=== PATIENT | male | born 2000 | race Hispanic/Latino ===

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

== ENCOUNTER 2023-12-11 05:46 | Emergency (ER) | payer SELFPAY ==
[2023-12-11] MEDS ORDERED: IBUPROFEN 400 MG TAB ONE (06:34)
[2023-12-11] MEDS ORDERED: DIAZEPAM 5 MG TABLET ONE (06:35)
--- NOTE | 2023-12-11 07:35 | RAD REPORT ---
EXAM DESCRIPTION: CT - C Spine Wo Con - 12/11/2023 6:59 am CLINICAL HISTORY: neck pain Neck pain, neck injury, radiculopathy COMPARISON: Chest Abd Pelvis Wo Con dated 12/11/2023 FINDINGS: The cervical vertebral body heights and disc spaces are maintained. No evidence of acute cervical spine fracture or subluxation. Prevertebral soft tissues are normal in thickness. IMPRESSION: Negative for acute cervical spine abnormality. All CT scans are performed using dose optimization technique as appropriate and may include automated exposure control or mA/KV adjustment according to patient size.
--- NOTE | 2023-12-11 07:38 | RAD REPORT ---
EXAM DESCRIPTION: CT - Chest Abd Pelvis Wo Con - 12/11/2023 6:59 am CLINICAL HISTORY: Chest and abdomen pain. CHEST PAIN COMPARISON: No comparisons TECHNIQUE: A limited noncontrast study was performed. All CT scans are performed using dose optimization technique as appropriate and may include automated exposure control or mA/KV adjustment according to patient size. FINDINGS: The lungs are clear.No pleural or pericardial effusion.No intrathoracic adenopathy. The liver, spleen, pancreas, adrenal glands and kidneys are within normal limits. No bowel obstruction, free air, free fluid or abscess. The appendix is not identified as a discrete s tructure, however, no secondary findings of appendicitis are identified. No pathologic lymphadenopa thy in the abdomen or pelvis. No worrisome osseous finding. IMPRESSION: No acute abnormality is detected.
--- NOTE | 2023-12-11 08:05 | EDPHYS ---
Physician Documentation [facility] Name: Daljit Faustin Age: 23 yrs Sex: Male : 2000 Arrival Date: 12/11/2023 Time: 05:46 Bed 4 Private MD: ED Physician Simone Vences HPI: 12/10 05:55 This 23 yrs old Male presents to ER via Unassigned with complaints of Chest sp4 Wall Pain, Back Pain. 07:18 23-year-old male presents with 1 year of left upper chest pain associated with left sp4 shoulder pain. Historical: - Allergies: 06:07 No Known Allergies; ha1 - PMHx: 06:07 ADD/ADHD; Asthma; ha1 - Immunization history:: Adult Immunizations up to date. - Infectious Disease History:: Denies. - Social history:: Smoking status: Reported history of juuling and/or vaping. - Family history:: not pertinent. ROS: 07:18 Constitutional: Negative for fever, chills, and weight loss, but of left upper chest sp4 pain and left shoulder pain 07:18 All other systems are negative, Exam: 07:18 Constitutional: This is a well developed, well nourished patient who is awake, alert, sp4 and in no acute distress. Head/Face: Normocephalic, atraumatic. Eyes: Pupils equal round and reactive to light, extra-ocular motions intact. Lids and lashes normal. Conjunctiva and sclera are not injected. Cornea within normal limits. Periorbital areas with no swelling, redness, or edema. ENT: Nares patent. No nasal discharge, no septal abnormalities noted. Tympanic membranes are normal and external auditory canals are clear. Oropharynx with no redness, swelling, or masses, exudates, or evidence of obstruction, uvula midline. Mucous membranes moist. Neck: Trachea midline, no thyromegaly or masses palpated, and no cervical lymphadenopathy. Supple, full range of motion without nuchal rigidity, or vertebral point tenderness. Chest/axilla: Normal chest wall appearance and motion. Nontender with no deformity. No lesions are appreciated. Cardiovascular: Regular rate and rhythm with a normal S1 and S2. No gallops, murmurs, or rubs. Normal PMI, no JVD. No pulse deficits. Respiratory: Lungs have equal breath sounds bilaterally, clear to auscultation and percussion. No rales, rhonchi or wheezes noted. No increased work of breathing, no retractions or nasal flaring. Abdomen/GI: Soft, with normal bowel sounds. No distension or tympany. No guarding or rebound. No evidence of tenderness throughout. Back: No spinal tenderness. No costovertebral tenderness. Skin: Warm, dry with normal turgor. Normal color with no rashes, no lesions, and no evidence of cellulitis. MS/ Extremity: Pulses equal, no cyanosis. Neurovascular intact. Full, normal range of motion. Neuro: Awake and alert, GCS 15, oriented to person, place, time, and situation. Cranial nerves II-XII grossly intact. Motor strength 5/5 in all extremities. Sensory grossly intact. Psych: Awake, alert, with orientation to person, place and time. Behavior, mood, and affect are within normal limits 07:18 ECG was reviewed by [place] [address] is normal sinus rhythm at the rate of 90 bpm, rightward axis Vital Signs: 06:00 BP 126 / 82; Pulse 96; Resp 17 S; Temp 98.2(O); Pulse Ox 100% on R/A; Weight 49.9 kg; ha1 Height 5 ft. 3 in. ; 07:40 BP 117 / 70; Pulse 72; Resp 16; Pulse Ox 100% ; bp 06:00 Body Mass Index 19.49 (49.90 kg, 160.02 cm) ha1 MDM: 05:55 Patient medically screened. sp4 07:58 ED course: EXAM DESCRIPTION: CT - C Spine Wo Con - 12/11/2023 6:59 am CLINICAL HISTORY: sp4 neck pain Neck pain, neck injury, radiculopathy COMPARISON: Chest Abd Pelvis Wo Con dated 12/11/2023 FINDINGS: The cervical vertebral body heights and disc spaces are maintained. No evidence of acute cervical spine fracture or subluxation. Prevertebral soft tissues are normal in thickness. IMPRESSION: Negative for acute cervical spine abnormality. All CT scans are performed using dose optimization technique as appropriate and may include automated exposure control or mA/KV adjustment according to patient size. . ED course: EXAM DESCRIPTION: CT - Chest Abd Pelvis Wo Con - 12/11/2023 6:59 am CLINICAL HISTORY: Chest and abdomen pain. CHEST PAIN COMPARISON: No comparisons TECHNIQUE: A limited noncontrast study was performed. All CT scans are performed using dose optimization technique as appropriate and may include automated exposure control or mA/KV adjustment according to patient size. FINDINGS: The lungs are clear.No pleural or pericardial effusion.No intrathoracic adenopathy. The liver, spleen, pancreas, adrenal glands and kidneys are within normal limits. No bowel obstruction, free air, free fluid or abscess. The appendix is not identified as a discrete structure, however, no secondary findings of appendicitis are identified. No pathologic lymphadenopathy in the abdomen or pelvis. No worrisome osseous finding. IMPRESSION: No acute abnormality is detected. . 12/10 06:23 Order name: CT Chest Abdomen Pelvis W/O Contrast sp4 12/10 06:23 Order name: CT C Spine sp4 12/10 05:55 Order name: EKG - Nurse/Tech; Complete Time: 05:59 sp4 EC:18 Rate is 90 beats/min. Rhythm is regular, Normal Sinus Rhythm. Right axis deviation sp4 noted. HI interval is normal. QRS interval is normal. QT interval is normal. No Q waves. T waves are Normal. No ST changes noted. Clinical impression: No evidence of ischemia. Interpreted by me. Reviewed by me. Administered Medications: 06:38 Drug: Ibuprofen PO 800 mg PO once Route: PO; cp4 08:10 Follow up: Response: No adverse reaction iw 06:38 Drug: Diazepam PO 10 mg PO once Route: PO; cp4 08:11 Follow up: Response: No adverse reaction iw Disposition Summary: 12/11/23 08:04 Discharge Ordered Notes: Location: Home sp4 Problem: new sp4 Symptoms: have improved sp4 Condition: Stable sp4 Diagnosis - Anxiety disorder, unspecified sp4 - Left shoulder pain, left rotator cuff weakness, noncardiac chest pain sp4 Followup: sp4 - With: Michi Hodges DO - When: 7 - 10 days - Reason: Recheck today's complaints Discharge Instructions: - Discharge Summary Sheet sp4 - Rotator Cuff Tendinitis sp4 Forms: - Patient Portal Instructions sp4 Prescriptions: - Ibuprofen 600 mg Oral Tablet - take 1 tablet ORAL route every 6 hours As needed take with food; 30 tablet; sp4 Refills: 0, Product Selection Permitted Signatures: Dispatcher [employer] Estephanie Andrade RN RN ha1 Simone Vences MD MD sp4 Lary Sims cp4 Sharon Duran RN iw
--- NOTE | 2023-12-11 08:05 | ER ---
Nurse's Notes [facility] Name: Daljit Faustin Age: 23 yrs Sex: Male : 2000 Arrival Date: 12/11/2023 Time: 05:46 Bed 4 Private MD: Diagnosis: Anxiety disorder, unspecified;Left shoulder pain, left rotator cuff weakness, noncardiac chest pain Presentation: 12/10 06:00 Chief complaint: Patient states: I have been feeling pain on the left side of chest ha1 that radiate to the left side of my back. Pain gets worse with movements. 06:00 Coronavirus screen: Vaccine status: Patient reports being unvaccinated. Ebola Screen: ha1 No symptoms or risks identified at this time. Initial Sepsis Screen: Does the patient meet any 2 criteria? No. Patient's initial sepsis screen is negative. Does the patient have a suspected source of infection? No. Patient's initial sepsis screen is negative. Risk Assessment: Do you want to hurt yourself or someone else? Patient reports no desire to harm self or others. Onset of symptoms was November 28, 2023. 06:00 Method Of Arrival: Ambulatory ha1 06:00 Acuity: EDILSON 3 ha1 Triage Assessment: 06:00 General: Appears uncomfortable, Behavior is calm, cooperative. Pain: Complains of pain ha1 in anterior aspect of left upper chest Pain radiates to back Pain currently is 8 out of 10 on a pain scale. Quality of pain is described as crampy, pressure. Neuro: Level of Consciousness is awake, alert, obeys commands, Oriented to person, place, time, situation. Cardiovascular: Reports chest pain, Heart tones S1 S2 present Capillary refill < 3 seconds Thorax. Respiratory: Airway is patent Respiratory effort is even, unlabored, Respiratory pattern is regular, symmetrical. GI: No signs and/or symptoms were reported involving the gastrointestinal system. : No signs and/or symptoms were reported regarding the genitourinary system. Derm: Skin is moist, Skin is normal. Musculoskeletal: Circulation, motion, and sensation intact. Range of motion: intact in all extremities. Historical: - Allergies: 06:07 No Known Allergies; ha1 - PMHx: 06:07 ADD/ADHD; Asthma; ha1 - Immunization history:: Adult Immunizations up to date. - Infectious Disease History:: Denies. - Social history:: Smoking status: Reported history of juuling and/or vaping. - Family history:: not pertinent. Screenin:11 [facility] ED Fall Risk Assessment (Adult) History of falling in the last 3 months, ha1 including since admission No falls in past 3 months (0 pts) Confusion or Disorientation No (0 pts) Intoxicated or Sedated No (0 pts) Impaired Gait No (0 pts) Mobility Assist Device Used No (0 pt) Altered Elimination No (0 pt) Score/Fall Risk Level 0 - 2 = Low Risk Oriented to surroundings, Maintained a safe environment, Educated pt \T\ family on fall prevention, incl call for assistance when getting out of bed, Hourly rounding (assess needs \T\ fall precautionary measures) done. Abuse screen: Denies threats or abuse. Denies injuries from another. Nutritional screening: No deficits noted. Tuberculosis screening: No symptoms or risk factors identified. Assessment: 06:00 Reassessment: see triage assessment. ha1 07:00 Reassessment: Patient and/or family updated on plan of care and expected duration. Pain ha1 level reassessed. Patient is alert, oriented x 3, equal unlabored respirations, skin warm/dry/pink. Vital Signs: 06:00 BP 126 / 82; Pulse 96; Resp 17 S; Temp 98.2(O); Pulse Ox 100% on R/A; Weight 49.9 kg; ha1 Height 5 ft. 3 in. ; 07:40 BP 117 / 70; Pulse 72; Resp 16; Pulse Ox 100% ; bp 06:00 Body Mass Index 19.49 (49.90 kg, 160.02 cm) ha1 ED Course: 05:47 Patient arrived in ED. jj6 05:55 Simone Vences MD is Attending Physician. sp4 05:59 Patient has correct armband on for positive identification. Placed in gown. Bed in low ha1 position. Call light in reach. Side rails up X 1. 05:59 Client placed on continuous cardiac and pulse oximetry monitoring. NIBP monitoring ha1 applied. receiving lead on. 06:00 Arm band placed on right wrist. ha1 06:07 Triage completed. ha1 06:12 Patient maintains SpO2 saturation greater than 95% on room air. ha1 06:59 CT Chest Abdomen Pelvis W/O Contrast In Process Unspecified. EDMS 07:00 CT C Spine In Process Unspecified. EDMS 07:36 Nabil Linn, RN is Primary Nurse. bp 08:04 Michi Hodges DO is Referral Physician. sp4 08:09 Provided Education on: d/c instructions. iw 08:10 No provider procedures requiring assistance completed. Patient did not have IV access iw during this emergency room visit. Administered Medications: 06:38 Drug: Ibuprofen PO 800 mg PO once Route: PO; cp4 08:10 Follow up: Response: No adverse reaction iw 06:38 Drug: Diazepam PO 10 mg PO once Route: PO; cp4 08:11 Follow up: Response: No adverse reaction iw Medication: 06:12 VIS not applicable for this client. ha1 Outcome: 08:04 Discharge ordered by . sp4 08:10 Discharged to home ambulatory, iw 08:10 Condition: good 08:10 Discharge instructions given to patient, Instructed on discharge instructions, follow up and referral plans. Demonstrated understanding of instructions, follow-up care, medications, Prescriptions given X 1, 08:10 Patient left the ED. iw Signatures: Dispatcher [employer] Sharon Dwyer, RN RN iw Nabil Linn, RN RN bp Keyona Renee jj6 Estephanie Nguyen, MATTHEW RN ha1 Simone Vences MD MD sp4 Lary Sims cp4
[2023-12-11 10:02] VITALS: TEMP 98.2; O2SAT 100
[2023-12-11 10:03] VITALS: BP 117/70
--- NOTE | 2023-12-11 13:29 | EKG ---
Test Date: 2023-12-11 Test Time: 06:05:59 Nursing Service Administrator: HAROON MEASUREMENT RESULTS: Intervals: Rate: 90 OK: 138 QRSD: 88 QT: 330 QTc: 403 [place]: P: 68 OK: 138 QRS: 94 T: 55 INTERPRETIVE STATEMENTS: Normal sinus rhythm Rightward axis Borderline ECG No previous ECG available for comparison Electronically Signed On 12-11-23 13:28:39 CDT by Harpreet Magallon
== END 2023-12-11 08:10 | disposition home or self-care (01) ==
LOC: ER 05:46
DX: F41.9 Anxiety disorder, unspecified (principal); M25.512 Pain in left shoulder; M62.81 Muscle weakness (generalized)
CPT/HCPCS: 71250; 72125; 74176; 93005; 99284

== ENCOUNTER 2024-04-20 22:21 | Emergency (ER) | payer SELFPAY ==
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
[2024-04-21 02:32] VITALS: BP 121/76; TEMP 98; O2SAT 100
--- NOTE | 2024-04-22 15:48 | EKG ---
Test Date: 2024-04-20 Test Time: 23:26:41 [employer] Miller: JASPER MEASUREMENT RESULTS: Intervals: Rate: 67 NV: 140 QRSD: 94 QT: 366 QTc: 386 [place]: P: 62 NV: 140 QRS: 97 T: 54 INTERPRETIVE STATEMENTS: Normal sinus rhythm Normal ECG Compared to ECG 12/11/2023 06:05:59 Right-axis deviation no longer present Electronically Signed On 04-22-24 15:46:30 BELLING MACHINE OPERATOR by Idris Cao
== END 2024-04-21 02:24 | disposition home or self-care (01) ==
LOC: ER 22:21
DX: S20.214A Contusion of middle front wall of thorax, initial encounter (principal); F17.290 Nicotine dependence, other tobacco product, uncomplicated; V43.52XA Car driver injured in collision with other type car in traffic accident, initial encounter; W22.11XA Striking against or struck by driver side automobile airbag, initial encounter; Y93.89 Activity, other specified; Y92.410 Unspecified street and highway as the place of occurrence of the external cause
CPT/HCPCS: 71250; 74176; 93005; 99284

== ENCOUNTER 2024-04-23 16:26 | Emergency (ER) | payer SELFPAY ==
[2024-04-23 19:32] LABS: Specific Gravity 1.011 (1.005-1.030); Urine Bilirubin NEGATIVE (Negative); Urine Blood Negative (Negative); Urine Clarity Clear (Clear); Urine Color Colorless (Yellow); Urine Glucose NEGATIVE (Negative); Urine Ketones NEGATIVE (Negative); Urine Microscopic Reflex YN NO UMIC; Urine Nitrite NEGATIVE (Negative); Urine Protein NEGATIVE (Negative); Urine Urobilinogen Normal (Normal)
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
--- NOTE | 2024-04-23 20:56 | ER ---
Nurse's Notes [facility] Name: Daljit Faustin Age: 23 yrs Sex: Male : 2000 Arrival Date: 04/23/2024 Time: 16:26 Bed 14 Private MD: Diagnosis: Abdominal pain, unspecified Presentation: 04/23 16:38 Chief complaint: Patient states: R sided abdominal pain/R flank pain for 2 weeks. Feels ll1 a lump to RLQ area. Has to force the stream to urinate well today. + heat waves but known fever. Coronavirus screen: Client denies travel out of the [place] in the last 14 days. At this time, the client does not indicate any symptoms associated with coronavirus-19. Ebola Screen: Patient denies travel to an Ebola-affected area in the 21 days before illness onset. Initial Sepsis Screen: Does the patient meet any 2 criteria? No. Patient's initial sepsis screen is negative. Does the patient have a suspected source of infection? No. Patient's initial sepsis screen is negative. Risk Assessment: Do you want to hurt yourself or someone else? Patient reports no desire to harm self or others. Onset of symptoms was April 10, 2024. 16:38 Method Of Arrival: Ambulatory 1 16:38 Acuity: EDILSON 3 ll1 Triage Assessment: 16:42 General: Appears uncomfortable, Behavior is calm, cooperative, appropriate for age. ll1 General: Reports fatigue for. Pain: Complains of pain in RLQ Quality of pain is described as aching. GI: Reports lower abdominal pain, nausea. Historical: - Allergies: 16:40 No Known Allergies; ll1 - PMHx: 16:40 ADD/ADHD; Asthma; ll1 - PSHx: 16:40 None; ll1 - Immunization history:: Adult Immunizations up to date. - Infectious Disease History:: Denies. - Social history:: Smoking status: Patient reports the use of cigarette tobacco products, denies chronic smoking, but will smoke occasionally, Reported history of juuling and/or vaping. Screenin:28 [facility] ED Fall Risk Assessment (Adult) History of falling in the last 3 months, dd2 including since admission No falls in past 3 months (0 pts) Confusion or Disorientation No (0 pts) Intoxicated or Sedated No (0 pts) Impaired Gait No (0 pts) Mobility Assist Device Used No (0 pt) Altered Elimination No (0 pt) Score/Fall Risk Level 0 - 2 = Low Risk Oriented to surroundings, Maintained a safe environment, Educated pt \T\ family on fall prevention, incl call for assistance when getting out of bed, Assessed \T\ reinforced patient's understanding of fall precautions, Hourly rounding (assess needs \T\ fall precautionary measures) done. Abuse screen: Denies threats or abuse. Nutritional screening: No deficits noted. Tuberculosis screening: No symptoms or risk factors identified. Assessment: 19:28 General: Appears in no apparent distress. Behavior is calm, cooperative, appropriate dd2 for age. Pain: Complains of pain in anterior aspect of right lateral abdomen, posterior aspect of right lateral abdomen and right lower quadrant Pain radiates to right low back Pain currently is 4 out of 10 on a pain scale. Neuro: Level of Consciousness is awake, alert, obeys commands, Oriented to person, place, time, situation, Appropriate for age. Cardiovascular: No deficits noted. Patient's skin is warm and dry. Respiratory: No deficits noted. Airway is patent Respiratory effort is even, unlabored, Respiratory pattern is regular, symmetrical. GI: Abdomen is flat, non-distended, Bowel sounds present X 4 quads. Abdomen is tender to palpation in anterior aspect of right lateral abdomen and right lower quadrant Reports lower abdominal pain. : CVA tenderness noted on right Reports urgency, DIFFICULTY URINATING. EENT: No deficits noted. No signs and/or symptoms were reported regarding the EENT system. Derm: No deficits noted. No signs and/or symptoms reported regarding the dermatologic system. Musculoskeletal: Circulation, motion, and sensation intact. Range of motion: intact in all extremities. Vital Signs: 16:38 BP 131 / 64; Pulse 80; Resp 16; Temp 97.9; Pulse Ox 98% ; Weight 54.43 kg; Height 5 ft. ll1 5 in. ; Pain 7/10; 19:28 BP 117 / 71; Pulse 63; Resp 16; Temp 98.1; Pulse Ox 100% ; dd2 20:30 BP 115 / 73; Pulse 68; Resp 16; Pulse Ox 100% ; dd2 21:16 BP 119 / 72; Pulse 69; Resp 16; Temp 98.4; Pulse Ox 100% ; dd2 16:38 Body Mass Index 19.97 (54.43 kg, 165.1 cm) ll1 16:38 Pain Scale: Adult ll1 [place] Coma Score: 19:28 Eye Response: spontaneous(4). Motor Response: obeys commands(6). Verbal Response: dd2 oriented(5). Total: 15. ED Course: 16:28 Patient arrived in ED. im 16:40 Triage completed. ll1 16:43 Arm band placed on. ll1 18:36 Joanna Anderson FNP-C is [facility]. kb 18:36 Jesse Villeda MD is Attending Physician. kb 19:28 MUMTAZ STRANGE RN is Primary Nurse. dd2 19:28 Patient has correct armband on for positive identification. Bed in low position. Call dd2 light in reach. Side rails up X 1. Client placed on continuous cardiac and pulse oximetry monitoring. NIBP monitoring applied. Door closed. Noise minimized. Warm blanket given. Pillow given. Verbal reassurance given. 19:28 No provider procedures requiring assistance completed. Urine collected: clean catch dd2 specimen, cloudy. Patient maintains SpO2 saturation greater than 95% on room air. 19:54 CT Stone Protocol In Process Unspecified. EDMS 20:15 Inserted saline lock: 20 gauge in right antecubital area, using aseptic technique. dd2 Flushed with 10 mL NS. 21:16 IV discontinued, intact, bleeding controlled, No redness/swelling at site. Pressure dd2 dressing applied. 21:17 Provided Education on: D/C INSTRUCTIONS. dd2 Administered Medications: 21:14 Drug: Ketorolac IVP 15 mg IVP once Route: IVP; Site: right antecubital; dd2 21:17 Follow up: Response: Medication administered at discharge. dd2 Medication: 19:28 VIS not applicable for this client. dd2 Outcome: 20:55 Discharge ordered by . kb 21:16 Discharged to home ambulatory, dd2 21:16 Condition: stable 21:16 Discharge instructions given to patient, Instructed on discharge instructions, follow up and referral plans. medication usage, Demonstrated understanding of instructions, follow-up care, medications, 21:18 Patient left the ED. dd2 Signatures: Dispatcher [employer] EDMS Joanna Anderson FNP-C FNP-Ckb Lewis, Lynsay, RN RN ll1 [place] DIANA, RN RN dd2 Corrections: (The following items were deleted from the chart) 21:16 19:28 BP 117 / 7; Pulse 63bpm; Resp 16bpm; Pulse Ox 100%; Temp 98.1F; dd2 dd2
--- NOTE | 2024-04-23 20:56 | EDPHYS ---
Physician Documentation [facility] Name: Daljit Faustin Age: 23 yrs Sex: Male : 2000 Arrival Date: 04/23/2024 Time: 16:26 Bed 14 Private MD: ED Physician Jesse Villeda HPI: 04/23 23:54 This 23 yrs old Male presents to ER via Ambulatory with complaints of kb Abdominal Pain, Flank Pain. 23:54 Pt is a 23 year old male who presents for RLQ pain that started 2 weeks ago. States it kb had been intermittent until yesterday when it became constant. Reports nausea and difficulty urinating that started yesterday as well. Denies fever, vomiting, diarrhea. . Historical: - Allergies: 16:40 No Known Allergies; ll1 - PMHx: 16:40 ADD/ADHD; Asthma; ll1 - PSHx: 16:40 None; ll1 - Immunization history:: Adult Immunizations up to date. - Infectious Disease History:: Denies. - Social history:: Smoking status: Patient reports the use of cigarette tobacco products, denies chronic smoking, but will smoke occasionally, Reported history of juuling and/or vaping. ROS: 23:52 Constitutional: As per HPI kb Exam: 23:52 Constitutional: This is a well developed, well nourished patient who is awake, alert, kb and in no acute distress. Head/Face: Normocephalic, atraumatic. ENT: Moist Mucous membranes Cardiovascular: Regular rate Respiratory: Respirations even and unlabored. No increased work of breathing. Talking in full sentences Back: No spinal tenderness. No costovertebral tenderness. Full range of motion. Skin: Warm, dry with normal turgor. Normal color. MS/ Extremity: Pulses equal, no cyanosis. Neurovascular intact. Full, normal range of motion. Neuro: Awake and alert, GCS 15, oriented to person, place, time, and situation. 23:52 Abdomen/GI: Inspection: abdomen appears normal, Bowel sounds: normal, Palpation: soft, in all quadrants, mild abdominal tenderness, in the right lower quadrant, Vital Signs: 16:38 BP 131 / 64; Pulse 80; Resp 16; Temp 97.9; Pulse Ox 98% ; Weight 54.43 kg; Height 5 ft. ll1 5 in. ; Pain 7/10; 19:28 BP 117 / 71; Pulse 63; Resp 16; Temp 98.1; Pulse Ox 100% ; dd2 20:30 BP 115 / 73; Pulse 68; Resp 16; Pulse Ox 100% ; dd2 21:16 BP 119 / 72; Pulse 69; Resp 16; Temp 98.4; Pulse Ox 100% ; dd2 16:38 Body Mass Index 19.97 (54.43 kg, 165.1 cm) ll1 16:38 Pain Scale: Adult ll1 [place] Coma Score: 19:28 Eye Response: spontaneous(4). Motor Response: obeys commands(6). Verbal Response: dd2 oriented(5). Total: 15. MDM: 18:36 Medical Screening Exam initiated kb 23:53 Differential diagnosis: appendicitis, non-specific abd pain, Ureterolithiasis, urinary kb tract infection. Data reviewed: vital signs, nurses notes. Test considered but Not performed: Labs: cbc, cmp considered but pt is nontoxic in appearance, afebrile, tolerating po intake. Counseling: I had a detailed discussion with the patient and/or guardian regarding the historical points, exam findings, and any diagnostic results supporting the discharge/admit diagnosis, lab results, radiology results, the need for outpatient follow up, a family practitioner, to return to the emergency department if symptoms worsen or persist or if there are any questions or concerns that arise at home. 04/23 18:36 Order name: Urinalysis w/ reflexes; Complete Time: 19:57 kb 04/23 18:36 Order name: CT Stone Protocol; Complete Time: 20:04 kb Administered Medications: 21:14 Drug: Ketorolac IVP 15 mg IVP once Route: IVP; Site: right antecubital; dd2 21:17 Follow up: Response: Medication administered at discharge. dd2 Disposition Summary: 04/23/24 20:55 Discharge Ordered Notes: Location: Home kb Condition: Stable kb Diagnosis - Abdominal pain, unspecified kb Followup: kb - With: Emergency Department - When: As needed - Reason: Worsening of condition Followup: kb - With: Private Physician - When: 2 - 3 days - Reason: Recheck today's complaints, Continuance of care, Re-evaluation by your physician Discharge Instructions: - Discharge Summary Sheet kb - Abdominal Pain, Adult, [id number] kb - Muscle Strain, [id number] kb Forms: - Medication Reconciliation Form kb - Antibiotic Education kb - Prescription Opioid Use kb - Patient Portal Instructions kb - Leadership Thank You Letter kb Signatures: Dispatcher [employer] EDMS Joanna Anderson FNP-C FNP-Marisabel Moon RN RN ll1 MUMTAZ STRANGE RN RN dd2 Corrections: (The following items were deleted from the chart) 18:36 18:36 Urinalysis+U.LAB.BRZ ordered. EDMS EDMS 18:36 18:36 Stone Protocol+CT.RAD.BRZ ordered. EDMS EDMS
[2024-04-23] MEDS ORDERED: KETOROLAC 30 MG/ML INJ ONE (21:10)
[2024-04-23 21:44] VITALS: O2SAT 100
[2024-04-23 21:46] VITALS: BP 119/72; TEMP 98.4
== END 2024-04-23 21:18 | disposition home or self-care (01) ==
LOC: ER 16:26
DX: R10.31 Right lower quadrant pain (principal); F17.200 Nicotine dependence, unspecified, uncomplicated
CPT/HCPCS: 74176; 76377; 81003; 96374; 99284